=== PATIENT | female | born 1955 | race Caucasian/White ===

== ENCOUNTER 2016-06-30 19:33 | Emergency (ER) | payer OTHER ==
[~2016-06-30] VITALS: Ht 154.9 cm; Wt 84.7 kg
[2016-06-30 19:34] VITALS: Ht 154.9 cm; Wt 84.7 kg
[2016-06-30] MEDS ORDERED: LOSA50TA6 PO (20:04)
[2016-06-30] MEDS ORDERED: MULT-506 PO (20:04)
[2016-06-30] MEDS ORDERED: LPT10 PO (20:04)
[2016-06-30] MEDS ORDERED: METR0.7527 TOP (20:04)
[2016-06-30] MEDS ORDERED: CONJ0.3T3 PO (20:04)
[2016-06-30] MEDS ORDERED: VERA180C3 PO (20:04)
[2016-06-30] MEDS ORDERED: LEVO25TA5 PO ×2 (20:04)
[2016-06-30 20:17] LABS: BASO % 0.2 %; BASO ABS # 0.03 K/uL (0-0.2); COMPLETE YES; EOS % 0.4 %; HEMATOCRIT 42.1 % (37-47); IG% 0.2 %; LYMPH % 13.7 %; LYMPH ABS # 1.71 K/uL (1.2-3.4); MEAN CELL VOLUME 84.2 fL (80-100); MEAN CORPUSCULAR HEMOGLOBIN 28.6 pg (25-34); MEAN PLATELET VOLUME 9.5 fL (7.4-10.4); MONO % 5.4 %; NEUT % 80.1 %; PLATELET COUNT 240 K/uL (130-400); WHITE BLOOD COUNT 12.49 K/uL (4.8-10.8)
[2016-06-30 20:21] LABS: MANUAL MICROSCOPIC REQUIRED? NO; REVIEW REQ? NO; URINE APPEARANCE CLEAR (CLEAR); URINE BILIRUBIN NEG (NEG); URINE COLOR YELLOW; URINE NITRITE NEG (NEG); URINE SPECIFIC GRAVITY >= 1.030 (1.000-1.030); UROBILINOGEN NEG (NEG)
[2016-06-30 20:31] LABS: BUN/CREATININE RATIO 15.5 (10-20); CALCIUM 9.5 mg/dl (8.5-10.1); CREATININE 0.85 mg/dl (0.60-1.20); POTASSIUM 4.1 mmol/L (3.5-5.1)
--- NOTE | 2016-06-30 21:09 | DIAGNOSTIC IMAGING REPORT ---
LUMBAR SPINE CT CT DOSE: 361.73 mGycm HISTORY: Pain Back pain TECHNIQUE: Multiaxial CT images of the lumbar spine were performed and reformatted in the sagittal and coronal plane without the use of contrast. COMPARISON: None. FINDINGS: No fractures. No subluxation. Paraspinal soft tissues are unremarkable. No evidence for significant compromise of the spinal canal IMPRESSION: Minimal degenerative disc change. No significant compromise of the spinal canal. No acute process. Electronically signed by: Judd Garnett M.D. 06/30/2016 9:07 PM Dictated Date/Time: 06/30/2016 9:06 PM
[2016-06-30] MEDS ORDERED: ONDANSETRON INJ 2 MG/ML 2 ML VIAL IV STA (22:11)
[2016-06-30] MEDS ORDERED: HYDROmorphone INJ 0.5 MG/0.5 ML SYR IV STA (22:11)
[2016-06-30] MEDS ORDERED: KETOROLAC TROMETHAMINE 30 MG/ML VIAL IV STA (22:11)
[2016-06-30] MEDS ORDERED: NORCO 5/325MG HOME PACK PO ONE (22:15)
[2016-06-30 22:42] VITALS: BP 135/62; PULSE 87; TEMP 36.8; O2SAT 97
[2016-06-30] MEDS ORDERED: HYDR-5688 PO (23:14)
--- NOTE | 2016-07-01 03:09 | EMERGENCY ROOM VISIT NOTE ---
History Report prepared by Zion: Ced Jo Under the Supervision of: Dr. Chevy Bronson M.D. First contact with patient: 19:41 Chief Complaint: BACK PAIN Stated Complaint: FALL/ BACK PAIN History of Present Illness The patient is a 60 year old female who presents to the Emergency Room with complaints of persistent and severe back pain that began yesterday, one day prior to arrival. The patient states that she felt something "pull" in her back two days ago when she bent over to get something out of her freezer. She first experienced her severe pain yesterday when she bent over again to tow picker a towel off of the ground. Her pain intermittently shoots down her right side. She rates her current pain as a 3/10 in severity after a dosage of medication. She notes that she has vomited secondary to her pain. She denies any numbness or tingling in her legs. She denies LOC, headache, fevers, chills, diaphoresis, visual changes, neck pain, chest pain, breathing difficulties, nausea, vomiting , abdominal pain, melena, hematochezia, urinary symptoms, lymphadenopathy, rash , or other complaints. Source of History: patient, family Onset: One day [employer] Position: back Symptom Intensity: 3/10 in severity Timing: other (Persistent) Associated Symptoms: + vomiting Review of Systems See HPI for pertinent positives and negatives. A total of ten systems were reviewed and were otherwise negative. Past Medical & Surgical Surgical Problems: (1) H/O tubal ligation Family History No pertinent family history secondary to age. Social History Smoking Status: Former Smoker Drug Use: none Marital Status: Housing Status: lives with significant other Current/Historical Medications Scheduled Atorvastatin (Atorvastatin Calcium), 10 MG PO DAILY Estrog Conj/Medryoxyprog Acet (Prempro 0.3MG/1.5MG), 1 TAB PO DAILY Levothyroxine Sodium (Levothyroxine Sodium), 25 MG PO 5XD Levothyroxine Sodium (Levothyroxine Sodium), 50 MG PO 2XWK Losartan Potassium (Cozaar), 50 MG PO DAILY Metronidazole (Topical) (Metrogel), 1 APPLN TOP DAILY Multivitamin (Multivitamin), 1 TAB PO DAILY Verapamil Hcl (Verapamil Hcl Sr), 180 MG PO DAILY Scheduled PRN Hydrocodone/Acetaminophen 5MG/325MG ([place] 5MG/325MG), 1-2 TABS PO Q6H PRN for Pain Allergies Coded Allergies: Lisinopril (Verified Allergy, Mild, Cough, 06/30/16) Physical Exam Vital Signs Date Time Temp Pulse Resp B/P Pulse Ox O2 Delivery O2 Flow Rate FiO2 06/30/16 22:42 36.8 87 20 135/62 97 Room Air 06/30/16 21:36 84 16 142/76 93 Room Air 06/30/16 20:19 86 06/30/16 20:16 85 20 153/82 97 Room Air 06/30/16 19:34 36.4 85 20 137/79 94 Room Air Physical Exam GENERAL: Awake, alert, well-appearing, in no distress HENT: Normocephalic, atraumatic. Oropharynx unremarkable. EYES: Normal conjunctiva. Sclera non-icteric. NECK: Supple. No nuchal rigidity. FROM. No JVD. RESPIRATORY: Clear to auscultation. CARDIAC: Regular rate, normal rhythm. Extremities warm and well perfused. Pulses equal. ABDOMEN: Soft, non-distended. No tenderness to palpation. No rebound or guarding. No masses. RECTAL: Deferred. BACK: SLR Negative, reflexes symmetrical without saddle anesthesia. Right paraspinal lumbar tenderness on exam. MUSCULOSKELETAL: Chest examination reveals no tenderness. The back is symmetrical on inspection without obvious abnormality. There is no CVA tenderness to palpation. No joint edema. LOWER EXTREMITIES: Calves are equal size bilaterally and non-tender. No edema. No discoloration. NEURO: Normal sensorium. No sensory or motor deficits noted. SKIN: No rash or jaundice noted. Medical Decision & Procedures ER Provider Diagnostic Interpretation: X ray results as stated below per my interpretation and radiologist interpretation. Other radiology results as stated below per my review and radiologist interpretation LUMBAR SPINE CT CT DOSE: 361.73 mGycm HISTORY: Pain Back pain TECHNIQUE: Multiaxial CT images of the lumbar spine were performed and reformatted in the sagittal and coronal plane without the use of contrast. COMPARISON: None. FINDINGS: No fractures. No subluxation. Paraspinal soft tissues are unremarkable. No evidence for significant compromise of the spinal canal IMPRESSION: Minimal degenerative disc change. No significant compromise of the spinal canal. No acute process. Electronically signed by: Judd Garnett M.D. 06/30/2016 9:07 PM Dictated Date/Time: 06/30/2016 9:06 PM Laboratory Results 06/30/16 20:05 Red Blood Count 5.00, Mean Corpuscular Volume 84.2, Mean Corpuscular Hemoglobin 28.6, Mean Corpuscular Hemoglobin Concent 34.0, Mean Platelet Volume 9.5, Neutrophils (%) (Auto) 80.1, Lymphocytes (%) (Auto) 13.7, Monocytes (%) (Auto) 5.4, Eosinophils (%) (Auto) 0.4, Basophils (%) (Auto) 0.2, Neutrophils # (Auto) 10.00, Lymphocytes # (Auto) 1.71, Monocytes # (Auto) 0.67, Eosinophils # (Auto) 0.05, Basophils # (Auto) 0.03 06/30/16 20:05 Test 06/30/16 20:05 06/30/16 20:10 White Blood Count 12.49 K/uL (4.8-10.8) Red Blood Count 5.00 M/uL (4.2-5.4) Hemoglobin 14.3 g/dL (12.0-16.0) Hematocrit 42.1 % (37-47) Mean Corpuscular Volume 84.2 fL (80-100) Mean Corpuscular Hemoglobin 28.6 pg (25-34) Mean Corpuscular Hemoglobin Concent 34.0 g/dl (32-36) Platelet Count 240 K/uL (130-400) Mean Platelet Volume 9.5 fL (7.4-10.4) Neutrophils (%) (Auto) 80.1 % Lymphocytes (%) (Auto) 13.7 % Monocytes (%) (Auto) 5.4 % Eosinophils (%) (Auto) 0.4 % Basophils (%) (Auto) 0.2 % Neutrophils # (Auto) 10.00 K/uL (1.4-6.5) Lymphocytes # (Auto) 1.71 K/uL (1.2-3.4) Monocytes # (Auto) 0.67 K/uL (0.11-0.59) Eosinophils # (Auto) 0.05 K/uL (0-0.5) Basophils # (Auto) 0.03 K/uL (0-0.2) RDW Standard Deviation 38.6 fL (36.4-46.3) RDW Coefficient of Variation 12.7 % (11.5-14.5) Immature Granulocyte % (Auto) 0.2 % Immature Granulocyte # (Auto) 0.03 K/uL (0.00-0.02) Anion Gap 9.0 mmol/L (3-11) Est Creatinine Clear Calc Drug Dose 67.7 ml/min Estimated GFR () 85.1 Estimated GFR (Non- 73.4 BUN/Creatinine Ratio 15.5 (10-20) Calcium Level 9.5 mg/dl (8.5-10.1) Urine Color YELLOW Urine Appearance CLEAR (CLEAR) Urine pH 6.0 (4.5-7.5) Urine Specific [place] >= 1.030 (1.000-1.030) Urine Protein NEG (NEG) Urine Glucose (UA) NEG (NEG) Urine Ketones NEG (NEG) Urine Occult Blood NEG (NEG) Urine Nitrite NEG (NEG) Urine Bilirubin NEG (NEG) Urine Urobilinogen NEG (NEG) Urine Leukocyte Esterase NEG (NEG) Laboratory results reviewed by me Medications Administered Medications (Trade) Dose Ordered Sig/Sarahy Route Start Time Stop Time Status Last Admin Dose Admin Hydromorphone HCl (Dilaudid Inj) 0.5 mg NOW STAT IV 06/30/16 22:11 06/30/16 22:13 DC 06/30/16 22:20 0.5 MG Ondansetron HCl (Zofran Inj) 4 mg NOW STAT IV 06/30/16 22:11 06/30/16 22:13 DC 06/30/16 22:20 4 MG Ketorolac Tromethamine (Toradol Inj) 10 mg NOW STAT IV 06/30/16 22:11 06/30/16 22:13 DC 06/30/16 22:20 10 MG Acetaminophen/ Hydrocodone Bitart ([place] 5/325mg Home Pack) 1 homepack UD ONCE PO 06/30/16 22:15 06/30/16 22:16 DC 06/30/16 22:20 1 HOMEPACK ED Course 1948: The patient was evaluated in room B2. A complete history and physical exam was performed. 1: Ordered Toradol 10 mg IV, Zofran 4 mg IV, Dilaudid 0.5 mg IV. 5: Ordered Acetaminophen/Hydrocodone 1 homepack PO. 2317: I reevaluated the patient. Discussed results and discharge instructions: She verbalized understanding and agreement. The patient is ready for discharge. Medical Decision Triage Nursing notes reviewed. The patient's presentation and history were concerning for back pain. Etiologies such as lumbago, sciatica, cauda equina, epidural abscess, osteomyelitis, fracture, aortic disease, metastatic disease, infection, renal colic, gastrointestinal, as well as others were entertained. Patient was evaluated. She was feeling better after medication received prehospital. Imaging was ordered. Blood work and urinalysis obtained. The patient had a subtle leukocytosis but I suspect this is from pain in her vomiting and she has not had any infection like symptoms. Her chemistry panel and urinalysis were unremarkable. The patient's CT did not reveal any acute findings. No evidence of compression fracture or abnormality. The patient had some increasing pain in her prehospital medication was wearing down. She was given a dose of Dilaudid, Toradol, and Zofran here. She was observed and was feeling much better. I discussed conservative management with close outpatient follow-up. Given her level of discomfort I believe she will need prescription pain medication. I discussed this with her and family. She felt comfortable. She will need close outpatient follow-up. I gave my usual and customary discussion regarding this issue. This seems most consistent with musculoskeletal back pain. By the evaluation outlined above other emergent etiologies such as those listed in the differential, as well as others, were deemed relatively unlikely. The patient and family were informed about the findings as listed above. All questions were answered and they were pleased with the treatment. Return instructions were outlined and the patient was discharged in stable condition. The patient was referred to her PCP for follow-up this week for a recheck of the current condition. The chart was completed utilizing [employer] voice recognition software. Grammatical errors, random word insertions, pronoun errors, and incomplete sentences are an occasional consequence of this system due to software limitations, ambient noise, and hardware issues. Any formal questions or concerns about the content, text, or information contained within the body of this dictation should be directly addressed to the physician for clarification. Impression Primary Impression: Acute low back pain Scribe Attestation The scribe's documentation has been prepared under my direction and personally reviewed by me in its entirety. I confirm that the note above accurately reflects all work, treatment, procedures, and medical decision making performed by me. Departure Information Dispostion Home / Self-Care Prescriptions Hydrocodone/Acetaminophen 5MG/325MG ([place] 5MG/325MG) Tab 1-2 TABS PO Q6H Y for Pain, #20 TAB Prov: Chevy Bronson MD 06/30/16 Referrals Martha Whitman (PCP) Forms HOME CARE DOCUMENTATION FORM, IMPORTANT VISIT INFORMATION Patient Instructions My [facility] Additional Instructions BACK PAIN/INJURY INSTRUCTIONS: DO NOT drive, drink alcohol, operate machinery, or perform dangerous activities today. You were given medications in the ER that can affect your ability to safely function or operate a vehicle. Hydrocodone/acetaminophen 5/325mg: Take 1-2 pills every 6 hours as needed for pain. Avoid additional Acetaminophen/Tylenol, alcohol, operating machinery or dangerous equipment, working on ladders or roofs, DRIVING, or situations where being under the influence may be dangerous. It is recommended to use a stool softener such as Colace, 100mg twice daily while taking this medication to avoid constipation. Ibuprofen(Motrin, Advil) may be used for fever or pain. Use 600mg every six hours as needed. Take with food. Avoid using more than 2400mg in a 24 hour period. Do not use 2400mg per day for more than three consecutive days without physician direction. Prolonged inappropriate use can lead to stomach upset or ulcers. This medication can be taken if you need to drive, work, or perform activities which may be dangerous when taking narcotic pain medication. (AND/OR) Acetaminophen(Tylenol) may be used for fever or pain. Use 1000mg every six hours as needed. Avoid using more than 4000mg in a 24 hour period. This medication can be taken if you need to drive, work, or perform activities which may be dangerous when taking narcotic pain medication. Rest and avoid heavy lifting until your symptoms resolve and then gradually return to full activity. A good rule of thumb is if it hurts your back to perform a certain activity, then it should be avoided until you are healthy again. A heating pad, warm compresses, or a hot shower may help with tight muscles and can be done several times a day as needed. Continue current medications. Return to the ER immediately for any numbness, tingling, severe pain, loss of control of your bowels or bladder, inability to walk, or as needed. Follow up with your primary care physician within 2-3 days for a recheck of your current condition.
== END 2016-06-30 23:24 | disposition home or self-care (01) ==
LOC: C.EDB 19:33 → EDBD 19:33 → C.EDB 23:24
DX: M54.5 Low back pain (principal); Z87.891 Personal history of nicotine dependence; Z98.51 Tubal ligation status

== ENCOUNTER → 2016-11-22 | Outpatient (CLI) | payer OTHER ==
[~2016-11-22] MED LIST: CONJ0.3T3 PO; HYDR-5688 PO; LEVO25TA5 PO; LOSA50TA6 PO; LPT10 PO; METR0.7527 TOP; MULT-506 PO; VERA180C3 PO
--- NOTE | 2016-11-22 13:57 | MAMMOGRAPHY REPORT ---
BILATERAL DIGITAL SCREENING MAMMOGRAM WITH CAD: 11/22/2016 CLINICAL HISTORY: Routine screening. Patient has no complaints. TECHNIQUE: Current study was also evaluated with a Computer Aided Detection (CAD) system. Bilateral CC and MLO views were obtained. COMPARISON: Comparison is made to exams dated: 10/19/2015 mammogram, 09/13/2014 mammogram, 09/09/2013 jose l mogram, 09/08/2012 mammogram, 02/10/2012 mammogram, and 08/08/2011 mammogram - [facility] nter. BREAST COMPOSITION: The tissue of both breasts is heterogeneously dense, which may obscure small mas ses. FINDINGS: No suspicious masses, calcifications, or areas of architectural distortion are noted in ei ther breast. There has been no significant interval change compared to prior exams. IMPRESSION: ACR BI-RADS CATEGORY 1: NEGATIVE There is no mammographic evidence of malignancy. A 1 year screening mammogram is recommended. The pa tient will receive written notification of the results. Approximately 10% of breast cancers are not detected with mammography. A negative mammographic report should not delay biopsy if a clinically suggestive mass is present. Aimee Paul M.D. /:11/22/2016 10:20:00 Cycle Director: Prisca LUCAS(Emilee)([place])([place]), [facility] letter sent: Normal 1/2 BI-RADS Code: ACR BI-RADS Category 1: Negative
== END | disposition home or self-care (01) ==
LOC: C.MAMM 09:15
PROVIDERS: ATTEND Physician Assistant
DX: Z12.31 Encounter for screening mammogram for malignant neoplasm of breast (principal)